=== PATIENT | female | born 1950 | race Caucasian/White ===

== ENCOUNTER 2018-04-15 05:31 | Day surgery (SDC) | payer OTHER ==
[~2018-04-15] VITALS: Ht 165.1 cm; Wt 75.4 kg
[~2018-04-15 05:31] MED LIST: LEVOXYL50 MCG PO; PRINIVIL10 MG PO
[2018-04-15] MEDS ORDERED: ALLEGRA60 MG PO (06:03)
[2018-04-15] MEDS ORDERED: BENZONATATE200 MG PO (06:03)
[2018-04-15] MEDS ORDERED: HYDROCODON-ACE1 EAC7 PO (11:01)
[2018-04-15 13:34] VITALS: BP 183/84
== END 2018-04-15 13:45 | disposition home or self-care (01) ==
LOC: SDC 05:31 → NUC 07:00 → SDC 07:00
DX: C50.212 Malignant neoplasm of upper-inner quadrant of left female breast (principal); Z17.0 Estrogen receptor positive status [ER+]; I10 Essential (primary) hypertension; E03.9 Hypothyroidism, unspecified; K21.9 Gastro-esophageal reflux disease without esophagitis; Z80.49 Family history of malignant neoplasm of other genital organs
CPT/HCPCS: 78195; 78999; 88307; A9541; J0690; J1100; J1170; J1885; J2250; J2405; J3010; Q0175; S0020